=== PATIENT | female | born 1995 | race Caucasian/White ===

== ENCOUNTER 2018-03-02 10:34 | Emergency (ER) | payer BC, OTHER ==
[2018-03-02 10:55] VITALS: BP 109/77
--- NOTE | 2018-03-02 10:59 | UC ---
UC General HPI - HPI Summary HPI Summary: Patient is complaining of a 3-4 day history of sore throat, fever with chills, nausea with vomiting and diarrhea. She notes that her symptoms are starting to improve and thinks that the fever has resolved. She denies history of travel or recent antibiotic use as well as abdominal pain. She has no history of inflammatory bowel disease. She missed work over the weekend and requires a note for lost work. The rest of her family is fine. - History of Current Complaint Hx Obtained From: Patient Hx Last Menstrual Period: 01/24/14 Onset/Duration: Gradual Onset Timing: Constant Aggravating: nothing Alleviating: nothing Associated Signs & Symptoms: Positive: Diarrhea, Fever, Melena, Vomiting <Nat Luis - Last Filed: 03/02/18 11:08> <Jonh Pelletier - Last Filed: 03/02/18 11:15> - History of Current Complaint Stated Complaint: FEVER VOMITING SORE THROAT RUNNY NOSE Time Seen by Provider: 03/02/18 10:49 - Allergy/Home Medications Allergies/Adverse Reactions: Allergies Allergy/AdvReac Type Severity Reaction Status Date / Time morphine Allergy Hives/Diff. Verified 03/02/18 10:49 Breathing/I tching Home Medications: Home Medications Anxiety Med 03/02/18 [History] busPIRone TAB* [Buspar TAB*] 5 mg PO TID 03/02/18 [History Confirmed 03/02/18] PMH/Surg Hx/FS Hx/Imm Hx Psychological History: Anxiety, Depression - Surgical History Surgical History: None - Family History Known Family History: Positive: None - Social History Occupation: Employed Full-time Lives: With Family Alcohol Use: Rare Substance Use Type: None - Immunization History Most Recent Tetanus Shot: unknown Vaccination Up to Date: Yes <Nat Luis - Last Filed: 03/02/18 11:08> Review of Systems Constitutional: Fever, Chills Skin: Negative Eyes: Negative ENT: Sore Throat Respiratory: Negative Cardiovascular: Negative Gastrointestinal: Vomiting, Diarrhea, Nausea Genitourinary: Negative Motor: Negative Neurovascular: Negative Musculoskeletal: Negative Neurological: Negative Psychological: Negative Is Patient Immunocompromised?: No All Other Systems Reviewed And Are Negative: Yes <Nat Luis - Last Filed: 03/02/18 11:08> Physical Exam Triage Information Reviewed: Yes Appearance: Well-Appearing Eyes: Positive: Conjunctiva Clear ENT: Positive: Pharyngeal erythema, TMs normal. Negative: Nasal congestion, Nasal drainage, Trismus, Muffled voice, Hoarse voice, Uvula midline Neck: Positive: Supple, Nontender, No Lymphadenopathy Respiratory: Positive: Lungs clear, Normal breath sounds Cardiovascular: Positive: RRR, No Murmur Abdomen Description: Positive: Nontender, No Organomegaly, Soft. Negative: Distended, Guarding Bowel Sounds: Positive: Present Musculoskeletal: Positive: ROM Intact Neurological: Positive: Alert Psychological: Positive: Age Appropriate Behavior Skin Exam: Normal <JanelleNat - Last Filed: 03/02/18 11:08> Vital Signs: Initial Vital Signs Temp 98.6 F 03/02/18 10:50 Pulse 82 03/02/18 10:50 Resp 16 03/02/18 10:50 BP 109/77 03/02/18 10:50 Pulse Ox 100 03/02/18 10:50 <Jonh Pelletier - Last Filed: 03/02/18 11:15> Diagnostics - Laboratory Diagnostic Studies Completed/Ordered: rapid strep=neg <JanelleNat Last Filed: 03/02/18 11:08> Course/Dx - Course Course Of Treatment: non toxic. no acute abdomen. declined nausea medication here. rapid strep is neg. tx supportive. - Differential Dx - Multi-Symptom Provider Diagnoses: vomiting. diarrhea. <JanelleNat Last Filed: 03/02/18 11:08> Discharge - Sign-Out/Discharge Documenting (check all that apply): Discharge/Admit/Transfer - Billing Disposition and Condition Condition: STABLE Disposition: Home <Nat Luis - Last Filed: 03/02/18 11:08> - Billing Disposition and Condition Condition: STABLE Disposition: Home <Jonh Pelletier - Last Filed: 03/02/18 11:15> - Discharge Plan Condition: Stable Disposition: HOME Patient Education Materials: Acute Nausea and Vomiting (ED), Acute Diarrhea (ED ) Forms: *Work Release Referrals: DEBORA Vu [Primary Care Provider] - 5 Days Additional Instructions: Per institutional requirements, I have reviewed the chart, however, I was not consulted specifically or made aware of this patient by the above midlevel provider. I did not personally evaluate, interact with , or disposition this patient.
== END 2018-03-02 11:13 | disposition home or self-care (01) ==
LOC: UCCORT 10:34
DX: R11.10 Vomiting, unspecified (principal); R19.7 Diarrhea, unspecified; Z88.5 Allergy status to narcotic agent
CPT/HCPCS: 87651; 99211; G0463

== ENCOUNTER 2018-09-10 16:18 | Emergency (ER) | payer OTHER ==
[2018-09-10 17:08] VITALS: BP 118/64
--- NOTE | 2018-09-10 18:07 | ED ---
Upper Extremity Pain - HPI Summary HPI Summary: 22 yr old female with the complaint of right shoulder pain. The patient states she fell on her right shoulder yesterday. Pain is moderate, and worse with attempting to raise over her head, and with forward flexion, and abduction greater than 90 degrees. Pain is moderate. 5/10. No bruising, no focal weakness, no numbness in the hand. She tripped over a baby gait - History of Current Complaint Chief Complaint: UCUpperExtremity Stated Complaint: RT SHOULDER INJURY Time Seen by Provider: 09/10/18 17:53 Hx Last Menstrual Period: current - Allergies/Home Medications Allergies/Adverse Reactions: Allergies Allergy/AdvReac Type Severity Reaction Status Date / Time morphine Allergy Hives/Diff. Verified 09/10/18 17:00 Breathing/I tching venlafaxine Allergy Hives Verified 09/10/18 17:00 Home Medications: Home Medications Acetaminophen [Tylenol Extra Strength] 1,000 mg PO Q6H PRN 09/10/18 [History Confirmed 09/10/18] Aspirin/Acetaminophen/Caffeine [Excedrin Extra Strength Caplet] 2 each PO DAILY PRN 09/10/18 [History Confirmed 09/10/18] Ibuprofen TAB* [Advil TAB*] 800 mg PO Q6H PRN 09/10/18 [History Confirmed ] [place] Carbonate [[place] Carbonate 300 mg cap] 300 mg PO BID 09/10/18 [ History Confirmed 09/10/18] PMH/Surg Hx/FS Hx/Imm Hx Infectious Disease History: No Infectious Disease History: Denies: Traveled Outside the [place] in Last 30 Days - Family History Known Family History: Positive: None - Social History Alcohol Use: Rare Substance Use Type: Reports: None Smoking Status (MU): Current Some Day Smoker Type: Cigarettes Amount Used/How Often: occasional use Review of Systems Constitutional: Negative Positive: Other - right shoulder pain All Other Systems Reviewed And Are Negative: Yes Physical Exam Triage Information Reviewed: Yes Vital Signs On Initial Exam: Initial Vitals Temp Pulse Resp BP Pulse Ox 98 F 79 18 118/64 100 09/10/18 17:03 09/10/18 17:03 09/10/18 17:03 09/10/18 17:03 09/10/18 17:03 Vital Signs Reviewed: Yes Appearance: Positive: Well-Appearing, No Pain Distress, Well-Nourished Skin: Positive: Warm, Skin Color Reflects Adequate Perfusion Head/Face: Positive: Normal Head/Face Inspection Eyes: Positive: EOMI ENT: Positive: Normal ENT inspection Neck: Positive: Nontender Respiratory/Lung Sounds: Positive: Clear to Auscultation, Breath Sounds Present Cardiovascular: Positive: RRR, Pulses are Symmetrical in both Upper and Lower Extremities. Negative: Murmur Abdomen Description: Negative: Distended Musculoskeletal: Positive: Other - right shoulder tender over the lateral shoulder. No STS no bruising, no redness,no deformity. The patient has passive ROM on exam but active ROM increases her pain on abduction. Neurological: Positive: Sensory/Motor Intact, Alert, Oriented to Person Place, Time, CN Intact II-III Psychiatric: Positive: Normal - [place] Coma Scale Best Eye Response: 4 - Spontaneous Best Motor Response: 6 - Obeys Commands Best Verbal Response: 5 - Oriented Coma Scale Total: 15 Diagnostics - Vital Signs Vital Signs Temp Pulse Resp BP Pulse Ox 09/10/18 17:03 98 F 79 18 118/64 100 - Laboratory Lab Statement: Any lab studies that have been ordered have been reviewed, and results considered in the medical decision making process. - Radiology right shoulder Radiology Interpretation Completed By: ED Physician - NAD Course/Dx - Course Course Of Treatment: 22 yr old with right shoulder pain, neg xray per my read. xray read pending by radiologist in am. - Diagnoses Provider Diagnoses: Contusion of shoulder, right, Rotator cuff injury Discharge - Sign-Out/Discharge Documenting (check all that apply): Patient Departure All imaging exams completed and their final reports reviewed: No - Discharge Plan Condition: Good Disposition: HOME Patient Education Materials: Rotator Cuff Injury (ED) Referrals: Coco Gee [Primary Care Provider] - Jamarcus Rodriguez MD [Medical Doctor] - 2 Days - Billing Disposition and Condition Condition: GOOD Disposition: Home
--- NOTE | 2018-09-11 08:29 | UC ---
- Progress Note Progress Note: right shoulder xray report : Report: Negative for fracture. Normal acromioclavicular and glenohumeral joint alignment. Unremarkable soft tissue contours. Course/Dx - Diagnoses Provider Diagnoses: Contusion of shoulder, right, Rotator cuff injury Discharge - Sign-Out/Discharge Documenting (check all that apply): Patient Departure All imaging exams completed and their final reports reviewed: Yes - Discharge Plan Condition: Good Disposition: HOME Patient Education Materials: Rotator Cuff Injury (ED) Forms: *Work Release Referrals: Jamarcus Rodriguez MD [Medical Doctor] - 2 Days Coco Gee [Primary Care Provider] - - Billing Disposition and Condition Condition: GOOD Disposition: Home
== END 2018-09-10 18:36 | disposition home or self-care (01) ==
LOC: UCCORT 16:18
DX: S40.011A Contusion of right shoulder, initial encounter (principal); S46.009A Unspecified injury of muscle(s) and tendon(s) of the rotator cuff of unspecified shoulder, initial encounter; W18.09XA Striking against other object with subsequent fall, initial encounter; Y93.9 Activity, unspecified; Y92.009 Unspecified place in unspecified non-institutional (private) residence as the place of occurrence of the external cause; Z88.5 Allergy status to narcotic agent; Z88.8 Allergy status to other drugs, medicaments and biological substances; F17.210 Nicotine dependence, cigarettes, uncomplicated
CPT/HCPCS: 99211; G0463